=== PATIENT | female | born 1975 | race Caucasian/White ===

== ENCOUNTER 2021-11-09 05:49 | Inpatient (IN) ==
[2021-11-09] MEDS ORDERED: ONDANSETRON 4 MG/2 ML VIAL IV STA (06:23)
[2021-11-09] MEDS ORDERED: HYDROmorphone 1 MG/1 ML SYRINGE IV STA (06:24)
[2021-11-09] MEDS ORDERED: SODIUM CHLORIDE 0.9% 1,000 ML IV STA (06:24)
[2021-11-09 07:28] LABS: Basophils # 0.1 10*3/uL (0.0-0.2); Basophils % 0.4 % (0.0-0.8); Eosinophils # 0.1 10*3/uL (0.0-0.87); Eosinophils % 0.6 % (0.00-10.9); Hematocrit 39.6 VOL% (35.7-47.0); Hemoglobin 13.2 GM/DL (12.0-16.0); Immature Granulocytes % 0.4 %; Immature Granulocytes Absolute 0.05 #; Lymphocytes # 0.8 10*3/uL (1.4-4.0); Mean Corpuscular HGB Conc 33.3 GM/DL (32-36); Mean Corpuscular Volume 96.8 FL (87-102); Mean Platelet Volume 10.8 FL (9.6-12.0); Monocytes # 0.6 10*3/uL (0.11-0.8); Monocytes % 4.7 % (1.7-12.7); Neutrophils % 87.9 % (38.7-73.9); Platelet Count 228 T/CUMM (130-400); Red Blood Count 4.09 MC/CUMM (3.8-5.5); Red Cell Distribution Width 12.6 % (9.3-17.3); White Blood Count 13.7 T/CUMM (4-12)
[2021-11-09 07:42] LABS: Albumin 4.2 G/DL (3.4-5.0); Bilirubin,Total 0.7 MG/DL (0.20-1.00); Calcium 9.6 MG/DL (8.5-10.1); Potassium 3.7 MMOL/L (3.5-5.1); Total Protein 7.7 G/DL (6.4-8.2)
[2021-11-09] MEDS ORDERED: CIPROFLOXACIN INJ 400 MG/200 ML PREMIX IV ONE (09:28)
[2021-11-09] MEDS ORDERED: GLUCAGON 1 MG VIAL IM PRN (09:50)
[2021-11-09] MEDS ORDERED: ACETAMINOPHEN 325 MG TABLET PO PRN (09:50)
[2021-11-09] MEDS ORDERED: DEXTROSE 10% 250 ML BAG IV PRN (09:57)
[2021-11-09] MEDS: PANTOPRAZOLE 40 MG VIAL IV SCH (10:28)
[2021-11-09] MEDS: LACTATED RINGERS 1,000 ML IV SCH ×2 (10:28→22:11)
[2021-11-09] MEDS: metroNIDAZOLE INJ 500 MG/100 ML PREMIX IV SCH ×2 (10:58→18:10)
[2021-11-09] MEDS: ONDANSETRON 4 MG/2 ML VIAL IV PRN ×3 (12:39→22:39)
[2021-11-09 12:45] LABS: Hematocrit 34.2 VOL% (35.7-47.0); Hemoglobin 11.7 GM/DL (12.0-16.0)
[2021-11-09 21:05] LABS: Hematocrit 33.5 VOL% (35.7-47.0); Hemoglobin 11.3 GM/DL (12.0-16.0)
[2021-11-09] MEDS: CIPROFLOXACIN INJ 400 MG/200 ML PREMIX IV SCH (22:11)
[2021-11-09] MEDS ORDERED: MORPHINE 2 MG/1 ML SYRINGE IV ONE (22:17)
[2021-11-10] MEDS: metroNIDAZOLE INJ 500 MG/100 ML PREMIX IV SCH ×3 (03:17→20:44)
[2021-11-10 04:58] LABS: Basophils % 0.4 % (0.0-0.8); Eosinophils # 0.3 10*3/uL (0.0-0.87); Eosinophils % 2.9 % (0.00-10.9); Hematocrit 33.4 VOL% (35.7-47.0); Immature Granulocytes % 0.4 %; Immature Granulocytes Absolute 0.04 #; Lymphocytes # 1.3 10*3/uL (1.4-4.0); Lymphocytes % 12.7 % (21.3-54.2); Mean Corpuscular HGB Conc 32.9 GM/DL (32-36); Mean Corpuscular Volume 97.1 FL (87-102); Mean Platelet Volume 11.4 FL (9.6-12.0); Monocytes # 0.9 10*3/uL (0.11-0.8); Monocytes % 8.4 % (1.7-12.7); Neutrophils % 75.2 % (38.7-73.9); Platelet Count 165 T/CUMM (130-400); Red Blood Count 3.44 MC/CUMM (3.8-5.5); Red Cell Distribution Width 12.5 % (9.3-17.3); White Blood Count 10.6 T/CUMM (4-12)
[2021-11-10 04:59] LABS: Hematocrit 33.3 VOL% (35.7-47.0); Hemoglobin 10.9 GM/DL (12.0-16.0)
[2021-11-10 05:18] LABS: Albumin 2.9 G/DL (3.4-5.0); Bilirubin,Total 0.8 MG/DL (0.20-1.00); Calcium 8.2 MG/DL (8.5-10.1); Osmolality,Calculated 276.4 MOS/KG (273-304); Potassium 3.7 MMOL/L (3.5-5.1); Total Protein 5.5 G/DL (6.4-8.2)
[2021-11-10] MEDS ORDERED: ESCITALOPRAM 10 MG TABLET PO SCH (09:00)
[2021-11-10] MEDS: CIPROFLOXACIN INJ 400 MG/200 ML PREMIX IV SCH ×2 (09:33→22:51)
[2021-11-10] MEDS: PANTOPRAZOLE 40 MG VIAL IV SCH (09:40)
[2021-11-10] MEDS: LACTATED RINGERS 1,000 ML IV SCH (13:25)
[2021-11-10] MEDS ORDERED: POLYETHYLENE GLYCOL POWDER 255 GM BOTTLE PO ONE (18:00)
[2021-11-10] MEDS: ONDANSETRON 4 MG/2 ML VIAL IV PRN (20:42)
[2021-11-10] MEDS ORDERED: MAGNESIUM CITRATE 300 ML BOTTLE PO ONE (21:00)
[2021-11-11] MEDS: metroNIDAZOLE INJ 500 MG/100 ML PREMIX IV SCH (03:40)
[2021-11-11 05:35] LABS: Basophils % 0.3 % (0.0-0.8); Eosinophils # 0.2 10*3/uL (0.0-0.87); Eosinophils % 1.7 % (0.00-10.9); Hematocrit 32.5 VOL% (35.7-47.0); Hemoglobin 10.5 GM/DL (12.0-16.0); Immature Granulocytes % 0.3 %; Immature Granulocytes Absolute 0.04 #; Lymphocytes # 1.6 10*3/uL (1.4-4.0); Lymphocytes % 13.7 % (21.3-54.2); Mean Corpuscular HGB Conc 32.3 GM/DL (32-36); Mean Corpuscular Volume 99.1 FL (87-102); Mean Platelet Volume 10.9 FL (9.6-12.0); Monocytes # 0.9 10*3/uL (0.11-0.8); Monocytes % 7.3 % (1.7-12.7); Neutrophils % 76.7 % (38.7-73.9); Platelet Count 171 T/CUMM (130-400); Red Blood Count 3.28 MC/CUMM (3.8-5.5); Red Cell Distribution Width 12.9 % (9.3-17.3); White Blood Count 11.6 T/CUMM (4-12)
[2021-11-11 05:55] LABS: Calcium 8.5 MG/DL (8.5-10.1)
[2021-11-11 06:02] LABS: INR 0.9; PT Patient Result 10.5 SECS (10.5-12.0)
[2021-11-11] MEDS ORDERED: LACTATED RINGERS 1,000 ML IV SCH (08:00)
[2021-11-11] MEDS ORDERED: propofoL 200 MG/20 ML VIAL IV ONE ×3 (09:07→09:30)
[2021-11-11] MEDS ORDERED: LIDOCAINE 2% 5 ML VIAL ONE (09:07)
[2021-11-11 10:25] VITALS: BP 115/77
== END 2021-11-11 10:52 | disposition left against medical advice (07) | DRG 394 ==
LOC: N.ED 05:49 → N.EDINP 09:50 → SUATTDRO 09:50 → N.5E 10:42
PROVIDERS: ADMIT Internal Medicine; ATTEND Internal Medicine
PROC: COLONBX (2021-11-11 08:35)